=== PATIENT | female | born 1980 | race Caucasian/White ===

== ENCOUNTER → 2016-11-15 | Outpatient (CLI) | payer BC ==
[~2016-11-15] MED LIST: ADAP0.1G8 TOP; CLIN1GEL54 TOP
--- NOTE | 2016-11-15 09:45 | DIAGNOSTIC IMAGING REPORT ---
BILATERAL KNEES 5 VIEWS INCLUDING BILATERAL STANDING AP VIEWS CLINICAL HISTORY: Bilateral knee pain COMPARISON: None. DISCUSSION: The joint spaces appear symmetric. There is no significant joint space narrowing. There are no erosive or destructive changes. No fractures are visualized. There is no evidence for soft tissue swelling. IMPRESSION: Unremarkable conventional radiographic evaluation of the knees Electronically signed by: Harinder Lara M.D. 11/15/2016 9:42 AM Dictated Date/Time: 11/15/2016 9:41 AM
== END | disposition home or self-care (01) ==
LOC: C.RDSM 09:30
PROVIDERS: ATTEND Family Medicine
DX: M25.561 Pain in right knee (principal)